=== PATIENT | male | born 1955 | race Caucasian/White ===

== ENCOUNTER 2021-04-18 01:50 | Day surgery (SDC) | payer MEDICARE, OTHER, SELFPAY ==
--- NOTE | 2021-04-17 18:01 | PM.HPGS ---
History of Present Illness History of Present Illness Consent: Risks, benefits, and alternatives have been discussed and questions answered. Patient agrees to proceed with procedure. Chief complaint: rectal bleed, fam hx of colon ca, hx of colon poly Narrative: Celestine Haas is a 65 year old male here for colon cancer screening. His mother had colon cancer. Also, he has some time seen blood in his stools although he is on Xarelto. He has had polyps removed in the past Review of Systems Review of Systems: All systems reviewed & are unremarkable except as noted in HPI and below PMFSH Past Medical History Medical History Arthritis Heart disease Hernia Skin cancer Surgical History Surgical History H/O cardiac radiofrequency ablation Family History Family History Mother Carcinoma of colon Father Lung cancer Social History Social History Smoking packs per day: 1 Smoking cigarettes per day: 20.0 Years smoked: 30 Smoking pack-years: 30.00 Smoking status: Former smoker Tobacco type: cigarettes Alcohol intake: current Alcohol use details: social Substance use: never Substance use type: does not use Living arrangements: with family Spiritual care concerns: No Meds Home Medications and Allergies Home Medications Medication Instructions Recorded Confirmed Type atorvastatin 20 mg tablet 20 mg PO DAILY 04/03/21 04/09/21 History diltiazem HCl 240 mg capsule,24 240 mg PO DAILY 04/03/21 04/18/21 History hr,extended release ezetimibe 10 mg tablet 10 mg PO DAILY 04/03/21 04/09/21 History rivaroxaban 20 mg tablet 20 mg PO DAILY 04/03/21 04/09/21 History Adults Multivitamin 1 cap PO DAILY 04/09/21 04/09/21 History ergocalciferol (vitamin D2) 50,000 unit PO WEEKLY 04/09/21 04/09/21 History magnesium oxide 400 mg PO BID 04/09/21 04/09/21 History omega-3 fatty acids [Fish Oil] 500 mg PO DAILY 04/09/21 04/09/21 History Allergies Allergy/AdvReac Type Severity Reaction Status Date / Time No Known Allergies Allergy Unverified 04/18/21 07:15 Exam Resp: Auscultation: clear to auscultation bilaterally Cardio: Rate: regular rate Rhythm: regular rhythm GI: GI Palp: Yes Soft to palpation and No Tenderness to palpation present (GI) Assessment and Plan Assessment and plan (1) Family history of colon cancer: Code(s): Z80.0 - Family history of malignant neoplasm of digestive organs Status: Acute Assessment and Plan: Colonoscopy with possible biopsy or polypectomy or cautery or injection of substances.
[2021-04-18 07:17] VITALS: BP 139/93; PULSE 86; RESP 16; TEMP 37.1; O2SAT 100
[2021-04-18] MEDS: LACTATED RINGERS 1,000 ML 150 ML IV CONT (07:29)
--- NOTE | 2021-04-18 08:04 | WPDANESEPPF ---
Anes - Initial Pre Proc Eval Procedure: Operation Date: 04/18/21 08:30 Proposed Procedures p Colonoscopy - Mika Ram MD Date/Time: 04/18/21 08:04 Surgeon: Mika Ram MD Pre Op Diagnosis: rectal bleed, fam hx of colon ca, hx of colon poly Patient Data Age: 65 Gender: M Height: 1.78 m Weight: 93.2 kg Last Vital Signs Temp 98.8 F 04/18/21 07:17 Pulse 86 04/18/21 07:17 Resp 16 04/18/21 07:17 BP 139/93 H 04/18/21 07:17 Pulse Ox 100 04/18/21 07:17 Allergies Allergy/AdvReac Type Severity Reaction Status Date / Time No Known Allergies Allergy Unverified 04/18/21 07:15 Home Medications Medication Instructions Recorded Confirmed Type atorvastatin 20 mg tablet 20 mg PO DAILY 04/03/21 04/09/21 History diltiazem HCl 240 mg capsule,24 240 mg PO DAILY 04/03/21 04/18/21 History hr,extended release ezetimibe 10 mg tablet 10 mg PO DAILY 04/03/21 04/09/21 History rivaroxaban 20 mg tablet 20 mg PO DAILY 04/03/21 04/09/21 History Adults Multivitamin 1 cap PO DAILY 04/09/21 04/09/21 History ergocalciferol (vitamin D2) 50,000 unit PO WEEKLY 04/09/21 04/09/21 History magnesium oxide 400 mg PO BID 04/09/21 04/09/21 History omega-3 fatty acids [Fish Oil] 500 mg PO DAILY 04/09/21 04/09/21 History Patient hx anesthesia problems: none Family hx anesthesia problems: none Results Review: All pre-operative results and documents have been reviewed as part of the pre-operative evaluation. [facility] Past Medical History Medical History Arthritis Heart disease Hernia Skin cancer Surgical History Surgical History H/O cardiac radiofrequency ablation Family History Family History Mother Carcinoma of colon Father Lung cancer Social History Social History Smoking packs per day: 1 Smoking cigarettes per day: 20.0 Years smoked: 30 Smoking pack-years: 30.00 Smoking status: Former smoker Tobacco type: cigarettes Alcohol intake: current Alcohol use details: social Substance use: never Substance use type: does not use Living arrangements: with family Spiritual care concerns: No Anes - Eval Final PreProcedure Day of Procedure 04/18/21 08:04 Patient weight: overweight Heart: regular rate and rhythm Lungs: clear to auscultation Airway: Mallampati scale class II Neurological: alert and oriented Last oral intake: >/= 8 hours ASA classification: III Emergent: no Anesthetic plan: proceed Anesthesia type and monitoring: general GIVS and standard monitoring Results Review: All pre-operative results and documents have been reviewed as part of the pre-operative evaluation. Informed Consent: The patient's anesthetic plan and its attendant risks and benefits were discussed with the patient/family/POA. Questions were solicited and answers provided to the satisfaction of the patient/family/POA.
[2021-04-18 08:56] VITALS: BP 101/58; PULSE 57; RESP 17; O2SAT 96
[2021-04-18 09:06] VITALS: BP 129/77; PULSE 63; RESP 21; O2SAT 98
[2021-04-18 09:16] VITALS: BP 131/77; PULSE 59; RESP 21; O2SAT 98
== END 2021-04-18 09:27 | disposition home or self-care (01) ==
PROVIDERS: PCP Internal Medicine; Visit Provider Internal Medicine Gastroenterology
PROC: 0DJD8ZZ Inspection of Lower Intestinal Tract, Via Natural or Artificial Opening Endoscopic (ICD-10-PCS; CPT 45378; principal; 2021-04-18 08:30)
DX: K62.5 Hemorrhage of anus and rectum (principal); K57.30 Diverticulosis of large intestine without perforation or abscess without bleeding; K64.8 Other hemorrhoids; I51.9 Heart disease, unspecified; M19.90 Unspecified osteoarthritis, unspecified site; Z86.010 Personal history of colon polyps; Z80.0 Family history of malignant neoplasm of digestive organs; Z87.891 Personal history of nicotine dependence; Z79.01 Long term (current) use of anticoagulants
CPT/HCPCS: 45378; J2704; J7120

== ENCOUNTER 2024-09-22 13:22 | Outpatient (CLI) | payer MEDICARE, SELFPAY ==
--- NOTE | ~2024-09-22 | CT_ITS ---
CT of the Abdomen and Pelvis: Indication: Microscopic hematuria Technique: 2.5 mm axial scans were obtained through the abdomen and pelvis prior to and following in travenous administration of 130 cc of Omnipaque 350. Dose reduction technique was used on this scan b y utilizing automated exposure control and iterative reconstruction technique. The dose-length produc t (DLP) was 1940.11 mGy-cm. Findings: Scans through the lung bases are unremarkable. The liver, spleen, pancreas, gallbladder, adrenals and left kidney are within normal limits. 2 mm non obstructing right renal stone present. There are atherosclerotic calcifications of the aorta. No lym phadenopathy. No bowel obstruction or bowel wall thickening. There is no evidence to suggest acute appendicitis. Images through the pelvis were performed. There is a 2.7 cm mass arising from the posterior left blad shira wall, highly suspicious for bladder carcinoma. No other pelvic mass seen. No ascites. Impression: 2.7 cm bladder mass at the posterior, left aspect, consistent with bladder carcinoma until proven oth erwise. Cystoscopy recommended for further evaluation. 2 mm nonobstructing right renal stone. Reviewed, dictated and finalized at location M. Impression: 2.7 cm bladder mass at the posterior, left aspect, consistent with bladder carc inoma until proven otherwise. Cystoscopy recommended for further evaluation. 2 mm nonobstructing right renal stone.
--- OUTSIDE RECORDS SUMMARY | 2024-09-22 13:36 | XMS_ITS | Clinical Summary ---
Author Organization [facility] Facility Address [address] [facility] [address] [place] [address] Care Team Providers Care Rn Anesthesiology Name Role Phone Dario Bridges MD Primary Care Provider [phone] [phone] Encounters Date Type Department Care Team Description 08/19/2024 Office Communication [address] [phone] Zander Burton DO Hematuria, not otherwise specified (Primary Dx); Stage 3a chronic kidney disease (HCC) 08/11/2024 Documentation Only [address] [address] Zander Burton, 08/11/2024 Documentation Only [address] [phone] Zander Burton DO 08/10/2024 1:30 PM CDT Office Visit [facility] [address] [place] [address] [address] [place] [address] Zander Burton DO Stage 3a chronic kidney disease (HCC) (Primary Dx); Persistent proteinuria; Nephrolithiasis; Obstructive sleep apnea syndrome; Permanent atrial fibrillation (HCC); Pure hypercholesterolemi a, not otherwise specified 08/10/2024 Office Communication [address] [phone] Zander Burton, 07/30/2024 Documentation Only [facility], [address] [address] Zander Burton, 07/30/2024 Documentation Only [facility], [address] [place] [phone] Zander Burton, 07/29/2024 Documentation Only [facility], [address] [address] Zander Burton, 07/29/2024 Documentation Only [facility], [address] [place] [address] Zander Burton DO from Last 3 Months Social History Tobacco Use Types Packs/Day Years Used Date Smoking Tobacco: Former Alcohol Use Standard Drinks/Week Comments Yes 0 (1 standard drink = 0.6 oz pure alcohol) Alcoholic Drinks/day: Occasional social drink Sex and Gender Information Value Date Recorded Sex Assigned at Not on file Legal Sex Male 2:50 PM EDT Gender Identity Not on file Sexual Orientation Not on file Last Filed Vital Signs Vital Sign Reading Time Taken Comments Blood Pressure 114/52 08/10/2024 1:44 PM CDT Pulse 58 08/10/2024 1:44 PM CDT Temperature 36.1 C (97 F) 05/06/2024 2:21 PM CDT Respiratory Rate 18 08/10/2024 1:44 PM CDT Oxygen Saturation 95% 08/10/2024 1:44 PM CDT Inhaled Oxygen Concentration - - Weight 97.5 kg (215 lb) 08/10/2024 1:44 PM CDT Height 177.8 cm (5' 10) 08/10/2024 1:44 PM CDT Body Mass Index 30.85 08/10/2024 1:44 PM CDT Plan of Treatment Upcoming Encounters Date Type Department Care Team (Late st Contact Info) Description 11/30/2024 1:30 PM CDT Office Visit [facility], [facility] [address] [facility] [address] [place] [phone] Zander Burton DO [facility] [address] [place] [phone] Health Maintenance Due Date Last Done Comments Colorectal Cancer Screening: Annual FOBT 2002 Colorectal Cancer Screening: Colonoscopy 2002 Colorectal Cancer Screening: Sigmoidoscopy 2002 Hepatitis B Vaccine (1 of 3 - Risk 3-dose series) 2013 Influenza Vaccine (#1) 2024 1, 11/08/2019, 12/17/2018, Additional history exists Pneumococcal Vaccine: 50+ Years Completed 2, 07/28/2019 Insurance Medicare [facility] Advance Directives Documents on File Type Date Recorded Patient Panel Assembler Expl anation Advance Care Planning 05/14/2024 10:20 AM Care Teams Rn Anesthesiology Relationship Specialty Start Date End Date Dario Bridges MD [address] [facility], [address] [place] [address] PCP - General Internal Medicine 02/20/24
--- OUTSIDE RECORDS SUMMARY | 2024-09-22 13:36 | XMS_ITS | Encounter Summary ---
Author Organization [employer] , [facility] Address [address] [place] [address] Phone Care Team Providers Care Health And Nutrition Specialist Name Role Phone Dario Bridges MD Primary Care Provider [phone] [phone] Reason for Visit * Reason Comments Med Refill Encounter Details Date Type Department Care Team (Late st Contact Info) Description 02/01/2022 Refill [email or web address], [place] [phone] Zander Burton DO [address] [place] [phone] Social History Tobacco Use Types Packs/Day Years Used Date Smoking Tobacco: Former Alcohol Use Standard Drinks/Week Comments Yes 0 (1 standard drink = 0.6 oz pure alcohol) Alcoholic Drinks/day: Occasional social drink Sex and Gender Information Value Date Recorded Sex Assigned at Not on file Legal Sex Male 2:50 PM EDT Gender Identity Not on file Sexual Orientation Not on file documented as of this encounter Miscellaneous Notes * Telephone Encounter - Margarita Nix CMA - 02/01/2022 12:10 PM SINGE WINDER Pt needs to call pcp for medication documented in this encounter Plan of Treatment Upcoming Encounters Date Type Department Care Team (Late st Contact Info) Description 11/30/2024 1:30 PM CDT Office Visit [facility], [facility] [address] [facility] [place] [address] [place] [phone] Zander Burton, [address] [place] [address] [address] [address] [place] [phone] documented as of this encounter Visit Diagnoses Not on filedocumented in this encounter Care Teams Health And Nutrition Specialist Relationship Specialty Start Date End Date Dario Bridges MD [address] [facility], [address] [place] [address] PCP - General Internal Medicine 02/20/24 documented as of this encounter
--- OUTSIDE RECORDS SUMMARY | 2024-09-22 13:36 | XMS_ITS | Encounter Summary ---
Author Organization [facility] [employer] , [facility] Address [address] [facility] [place] [address] Phone Care Team Providers Care Game Attendant Name Role Phone Dario Bridges MD Primary Care Provider [phone] [phone] Reason for Visit * Reason Comments Med Refill Encounter Details Date Type Department Care Team (Late st Contact Info) Description 01/27/2022 Refill [facility] [place], [facility] [address] [place] [address] 1 [place] [address] Zandre Burton DO [address] [facility] 1 [place] [address] Social History Tobacco Use Types Packs/Day [...] on file documented as of this encounter Plan of Treatment Upcoming Encounters Date Type Department Care Team (Late st Contact Info) Description 11/30/2024 1:30 PM CDT Office Visit [facility], [facility] [address] [facility] 15 [place] [address] Zander Burton DO [address] [facility] 1 [place] [address] documented as of this encounter Visit Diagnoses Not on filedocumented in this encounter Care Teams Game Attendant Relationship Specialty Start Date End Date Dario Bridges MD [address] [facility], [address] [place] [address] PCP - General Internal Medicine 02/20/24 documented as of this encounter
--- OUTSIDE RECORDS SUMMARY | 2024-09-22 13:36 | XMS_ITS | Clinical Summary ---
Author Organization [facility] [email or web address] Address [address] [facility] [place] [address] Care Team Providers Care Thread Reeler Name Role Phone Dario Bridges MD Primary Care Provider Source Comments [facility] [email or web address],non-owned Affiliates and Associated Physician Practices is amultiple site organization consisting of ambulatory clinics and hospital sitesin [place], [place], [place] and [place]. This disclosure is being madepursuant to the Care Everywhere program and may not contain all information available regarding this patient. Last updated 17.[facility] [email or web address] Allergies No known active allergies Medications * Be aware that medications may not be up to date on this document. Alwaysverify current medications with the patient. atorvastatin (LIPITOR) 20 MG tablet Take 1 (one) tablet by mouth every 2 days Active Magnesium 400 MG Take 800 mg by mouth 2 times daily Active rivaroxaban (Xarelto) 20 MG tablet Take 1 (one) tablet by mouth daily with food Active Multiple Vitamins-Minera ls (MULTIVITAMIN ADULTS 50+) TABS Active Spangle-3 Fatty Acids (FISH OIL) 500 MG capsule Take 500 (five hundred) mg by mouth once daily Active dilTIAZem ER 24hr (Tiazac) 240 MG capsule 1 (one) capsule 2 times daily 08/02/2021 Active ascorbic acid (Vitamin C) 250 MG chewable tablet Take by mouth once daily Active Active Problems Problem Noted Date Diagnosed Date NAFLD (nonalcoholic fatty liver disease) 019 Overview (11/15/2022): 06/19/18 [employer] CAP 314, LSM 7.3 kPa 03/07/20 [employer] CAP 281, LSM 6.1 kPa 10/16/21 [employer] CAP 225, LSM 5.1 kPa 11/15/22 [employer] CAP 203, LSM 2.8 kPa Resolved Problems Problem Noted Date Diagnosed Date Resolved Date Elevated liver enzymes 04/24/201812/15 Social History Tobacco Use Types Packs/Day Years Used Date Smoking Tobacco: Former Cigarettes Smokeless Tobacco: Never Tobacco Cessation:Counseling Given: Not Answered Comments:quit 1999 Alcohol Use Standard Drinks/Week Comments Yes 0 (1 standard drink = 0.6 oz pur e alcohol) occasional Sex and Gender Information Value Date Recorded Sex Assigned at Not on file Legal Sex Male 2:37 PM [employer]OR [employer] Gender Identity Not on file Sexual Orientation Not on file Last Filed Vital Signs Vital Sign Reading Time Taken Comments Blood Pressure 128/78 11/13/2023 8:48 AM CDT Pulse 50 11/13/2023 8:48 AM CDT Temperature 36.4 C (97.5 F) 11/15/2022 8:08 AM CDT Respiratory Rate 18 11/15/2022 8:08 AM CDT Oxygen Saturation 98% 11/13/2023 8:48 AM CDT Inhaled Oxygen Concentration - - Weight 91.7 kg (202 lb 3.2 oz) 11/13/2023 8:48 A M CDT Height 177.8 cm (5' 10) 11/13/2023 8:48 AM CDT Body Mass Index 29.01 11/13/2023 8:48 AM CDT Plan of Treatment Upcoming Encounters Date Type Department Care Team (Late st Contact Info) Description 11/11/2024 8:00 AM CDT Procedure visit [facility] [address] [place] [phone] 11/11/2024 8:30 AM CDT Office [place] [facility] [place] [address] [place] [phone] Isa Vyas, [employer] ASSEMBLER-BOARD OF DIRECT[employer] [address] [place] [address] Health Maintenance Due Date Last Done Comments COLOGUARD (AGES 45-75) - COLON CA SCREENING 1953 COLON MONITORING 1953 COLONOSCOPY - COLON CA SCREENING 1953 CT COLONOGRAPHY - COLON CA SCREENING 1953 Colorectal Cancer Screening 1953 FIT - COLON CA SCREENING 1953 FLEX SIG - COLON CA SCREENING 1953 MEDICARE AWV 12 MONTHS 1953 HEPATITIS C SCREENING 07/13/1971 DTAP/TDAP/TD VACCINES (1 - Tdap) 1972 PNEUMOCOCCAL VACCINE 50+ (1 of 1 - PCV) 07/18/2003 ZOSTER VACCINE (1 of 2) 07/18/2003 AAA SCREENING 2018 COVID-19 VACCINE ( - season) 2023 11/23/2021, 06/02/2021, 12/27/2020, Additional history exists DEPRESSION SCREENING 02/25/2024 INFLUENZA VACCINE (#1) 2024 1, 11/08/2019, 12/17/2018, Additional history exists SCREENING FOR DIABETES 11/10/2026 4, 10/04/2022, 10/17/2020, Additional history exists Respiratory Syncytial Virus (RSV) Vaccine Pt: or over 60 yrs (1 - 1-dose 75+ series) 2028 HEPATITIS B VACCINE Aged Out No longe r eligible based on patient's age to complete this topic HIB VACCINE Aged Out No longer eligi ble based on patient's age to complete this topic HPV VACCINE Aged Out No longer eligi ble based on patient's age to complete this topic MENINGOCOCCAL (Group B) VACCINE SHARED DECISION-MAKING Aged Out No longer eligible based on patient's age to complete this topic MENINGOCOCCAL GROUPS A/C/Y/W VACCINE Aged Out No longer eligible based on patient's age to complete this topic Goals Goal Patient Goal Type Associated Problems Recent Progress Patient-Stated? Author Medication Management General On track( 023 8:10 AM CDT) Jin Saunders, RN Note: Expected end date: Interventions: Take all medications as prescribed Let your doctor know right away about any changes in your medications Make sure to request a refill of your medication at least one week prior to your last dose Procedures Procedure Name Priority Date/Time Associated Diagnosis Comments COMPREHENSIVE METABOLIC PANEL 11/11/2023 8:37 AM CDT from Last 3 Months or Most Recently Relevant to Health Maintenance Results * (ABNORMAL) COMPREHENSIVE METABOLIC PANEL (11/11/2023 8:37 AM CDT) Pathologist [facility] Glucose 97 65 - 99 mg/dL [facility] Comment: Fasting reference interval BUN 22 7 - 25 mg/dL [facility] Creatinine 1.30(H) 0.70 - 1.28 mg/dL [facility] eGFR by Cystatin C 59(L) > OR = 60 mL/min/1. 73m2 [facility] BUN/Creatinine Ratio 17 6 - 22 (calc) [facility] Sodium 139 135 - 146 mmol/L [facility] Potassium 4.6 3.5 - 5.3 mmol/L [facility] Chloride 103 98 - 110 mmol/L [facility] CO2 30 20 - 32 mmol/L [facility] Calcium 9.7 8.6 - 10.3 mg/dL [facility] Protein Total 7.0 6.1 - 8.1 g/dL [facility] Albumin 4.4 3.6 - 5.1 g/dL [facility] Globulin Total 2.6 1.9 - 3.7 g/dL (calc) [facility] Albumin/Globulin Ratio 1.7 1.0 - 2.5 (calc) [facility] Bilirubin Total 0.9 0.2 - 1.2 mg/dL [facility] Alkaline Phosphatase 72 35 - 144 U/L [facility] AST 28 10 - 35 U/L [facility] ALT 31 9 - 46 U/L [facility] Comment: Test Performed at: [place] [place] [address] [place] [address] BRUNO GUO MD 11/11/2023 8:3 7 AM CDT 11/11/2023 8:38 AM CDT us Isa Vyas [employer] AS[employer]ER-[employer] DIRECT[employer] LAB - CHEMISTRY ORD ERABLES Final Result [address] [address] from Last 3 Months or Most Recently Relevant to Health Maintenance Insurance MEDICARE MEDICARE Care Teams Thread Reeler Relationship Specialty Start Date End Date Dario Bridges MD [address] [facility] 15 [place] [address] PCP - General 03/16/18
--- OUTSIDE RECORDS SUMMARY | 2024-09-22 13:36 | XMS_ITS | Encounter Summary ---
Author Organization [facility] [employer] , [facility] Address [address] [facility] [place] [address] Phone Care Team Providers Care General Farmer Name Role Phone Dario Bridges MD Primary Care Provider [phone] [phone] Reason for Visit * Reason Comments Med Refill Encounter Details Date Type Department Care Team (Late st Contact Info) Description 07/25/2021 Refill [facility], [facility] [address] [place] [address] 1 [place] [address] Zander Burton DO [address] [facility] 1 [place] [address] Social History Tobacco Use Types [...] Description 11/30/2024 1:30 PM CDT Office Visit [facility], [facility] [address] [facility] 15 [place] [address] Zander Burton DO [address] [facility] 1 [place] [address] documented as of this encounter Visit Diagnoses Not on filedocumented in this encounter Care Teams General Farmer Relationship Specialty Start Date End Date Dario Bridges MD [address] [facility], [address] [place] [address] PCP - General Internal Medicine 02/20/24 documented as of this encounter
--- OUTSIDE RECORDS SUMMARY | 2024-09-22 13:36 | XMS_ITS | Encounter Summary ---
Author Organization [facility] [employer] , [facility] Address [address] [facility] [place] [address] Phone Care Team Providers Care Cisco Administrator Name Role Phone Dario Bridges MD Primary Care Provider [phone] [phone] Reason for Visit * Reason Comments Med Refill Encounter Details Date Type Department Care Team (Late st Contact Info) Description 02/20/2022 Refill [facility], [facility] [address] [place] [address] 1 [place] [address] Zander Burton DO [address] [facility] 1 [place] [address] Social History Tobacco Use Types [...] Description 11/30/2024 1:30 PM CDT Office Visit [facility], [facility] [address] [facility] 15 [place] [address] Zander Burton DO [address] [facility] 1 [place] [address] documented as of this encounter Visit Diagnoses Not on filedocumented in this encounter Care Teams Cisco Administrator Relationship Specialty Start Date End Date Dario Bridges MD [address] [facility], [address] [place] [address] PCP - General Internal Medicine 02/20/24 documented as of this encounter
[2024-09-22 13:51] LABS: Estimated Glomerular Filt Rate > 60
== END 2024-09-22 13:23 | disposition home or self-care (01) ==
PROVIDERS: PCP Internal Medicine; Visit Provider Urology
DX: N32.89 Other specified disorders of bladder (principal); R31.29 Other microscopic hematuria
CPT/HCPCS: 74178; Q9967

== ENCOUNTER 2024-10-08 14:15 | Outpatient (CLI) | payer MEDICARE, SELFPAY ==
--- OUTSIDE RECORDS SUMMARY | 2024-10-08 14:21 | XMS_ITS | Clinical Summary ---
Author Organization [facility] Address [address] [facility] [place] [address] Care Team Providers Care Telephone Operator Chief Name Role Phone Dario Bridges MD Primary Care Provider Source Comments [facility],non-owned Affiliates and Associated Physician Practices is amultiple site organization consisting of ambulatory clinics and hospital sitesin [place], [place], [place] and [place]. This disclosure is being madepursuant to the Care Everywhere program and may not contain all information available regarding this patient. 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 Gender Identity Not on file Sexual Orientation [...] Procedure visit [facility] [address] [place] [phone] 11/11/2024 8:30 AM CDT Office [place] [facility] [place] [address] [place] [phone] Isa Vyas, INFORMATION SECURITY OFFICER-STANDARD MACHINE STITCHER [address] [place] [address] Health Maintenance Due Date Last Done Comments [...] DEPRESSION SCREENING 02/25/2024 INFLUENZA VACCINE (#1) 2024 4, 11/20/2020, 11/08/2019, Additional history exists SCREENING FOR DIABETES 11/10/2026 [...] COMPREHENSIVE METABOLIC PANEL (11/11/2023 8:37 AM CDT) [facility] Glucose 97 65 - 99 mg/dL [facility] [...] 46 U/L [facility] Comment: Test Performed at: [facility] [address] [place] [address] BRUNO GUO MD 11/11/2023 8:3 7 AM CDT 11/11/2023 8:38 AM CDT us Isa Vyas INFORMATION SECURITY OFFICER-STANDARD MACHINE STITCHER LAB - CHEMISTRY ORD ERABLES Final Result [address] [address] from Last 3 Months or Most Recently Relevant to Health Maintenance Insurance MEDICARE MEDICARE Care Teams Telephone Operator Chief Relationship Specialty Start Date End Date Dario Bridges MD [address] [facility] [address] [place] [phone] PCP - General 03/16/18
--- OUTSIDE RECORDS SUMMARY | 2024-10-08 14:21 | XMS_ITS | Encounter Summary ---
Author Organization [facility] , [facility] Address [address] [place] [address] Phone Care Team Providers Care Geography Instructor Name Role Phone Dario Bridges MD Primary Care Provider +1 [phone] Reason for Visit * Reason Comments Med Refill Encounter Details Date Type Department Care Team (Late st Contact Info) Description 02/01/2022 Refill [place] [facility], [place] [phone] Zander Burton DO [address] [place] [address] Social History Tobacco Use Types Packs/Day [...] Margarita Nix CMA - 02/01/2022 12:10 PM NEEDLE PUNCH MACHINE OPERATOR Pt needs to call pcp for medication documented in this encounter Plan of Treatment Upcoming Encounters Date Type Department Care Team (Late st Contact Info) Description 11/30/2024 1:30 PM CDT Office Visit [facility], [facility] [address] [facility] [address] [place] [address] Zander Burton, [address] [place] [address] [address] [place] [phone] documented as of this encounter Visit Diagnoses Not on filedocumented in this encounter Care Teams Geography Instructor Relationship Specialty Start Date End Date Dario Bridges MD [address] [facility], [address] [place] [address] PCP - General Internal Medicine 02/20/24 documented as of this encounter
--- OUTSIDE RECORDS SUMMARY | 2024-10-08 14:21 | XMS_ITS | Encounter Summary ---
Author Organization [facility] [employer] [facility] Address [address] [facility] [place] [address] Phone Care Team Providers Care Teacher Name Role Phone Dario Bridges MD Primary Care Provider +1 [phone] Encounter Details Date Type Department Care Team (Late st Contact Info) Description 10/06/2024 Documentation Only [place] [employer] [place] [address] [place] [address] Zander Burton DO [address] [facility] 1 [place] [address] Social History Tobacco Use Types [...] Description 11/30/2024 1:30 PM CDT Office Visit [place] [employer] [facility] [address] [facility] [address] [place] [address] Zander Burton DO [address] [facility] 1 [place] [address] documented as of this encounter Visit Diagnoses Not on filedocumented in this encounter Care Teams Teacher Relationship Specialty [place] [address] [place] [address], [address] [place] [address] PCP - General Internal Medicine 02/20/24 documented as of this encounter
--- OUTSIDE RECORDS SUMMARY | 2024-10-08 14:21 | XMS_ITS | Clinical Summary ---
Author Organization [facility] Address [address] [address] Care Team Providers Care Parts Consultant Name Role Phone Dario Bridges MD Primary Care Provider +1 [phone] Encounters Date Type Department Care Team Description 10/06/2024 Documentation Only [address] [address] Zander Burton DO 08/19/2024 Office Communication [address] [address] Zander Burton DO Hematuria, not otherwise specified (Primary Dx); Stage 3a chronic kidney disease (HCC) 08/11/2024 Documentation Only [address] [address] Zander Burton DO 08/11/2024 Documentation Only [address] [address] Zander Burton DO 08/10/2024 1:30 PM CDT Office Visit [place] [facility] [address] [facility] 93 [place] [address] Zander Burton DO Stage 3a chronic kidney disease (HCC) (Primary Dx); Persistent proteinuria; Nephrolithiasis; Obstructive sleep apnea syndrome; Permanent atrial fibrillation (HCC); Pure hypercholesterolemi a, not otherwise specified 08/10/2024 Office Communication [place] [facility], [address] [address] Zander Burton, 07/30/2024 Documentation Only [facility], [address] [place] [address] Zander Burton, 07/30/2024 Documentation Only [facility], [address] [address] Zander Burton, 07/29/2024 Documentation Only [facility], [address] [phone] Zander Burton, 07/29/2024 Documentation Only [facility], [address] [phone] Zander Burton, DO from Last 3 Months Social History [...] Description 11/30/2024 1:30 PM CDT Office Visit [facility], [facility] 20[address] [facility] [address] [place] [address] Zander Burton DO [address] [facility] 1 [place] [phone] Health Maintenance Due Date Last Done Comments Colorectal Cancer Screening: Annual FOBT 2002 Colorectal Cancer Screening: Colonoscopy 2002 Colorectal Cancer Screening: Sigmoidoscopy 2002 Hepatitis B Vaccine (1 of 3 - Risk 3-dose series) 2013 Influenza Vaccine (#1) 2024 4, 10/25/2022, 11/20/2020, Additional history exists Pneumococcal Vaccine: 50+ Years Completed 2, 07/28/2019 Insurance Medicare [facility] Advance Directives Documents on File Type Date Recorded Patient Bathhouse Keeper Expl anation Advance Care Planning 05/14/2024 10:20 AM Care Teams Parts Consultant Relationship Specialty Start Date End Date Dario Bridges MD [address]44 [facility], [address] [place] [address] PCP - General Internal Medicine 02/20/24
--- OUTSIDE RECORDS SUMMARY | 2024-10-08 14:21 | XMS_ITS | Encounter Summary ---
Author Organization [facility] [employer] , [facility] Address [address] [facility] [place] [address] Phone Care Team Providers Care Cementer Name Role Phone Dario Bridges MD Primary Care Provider [phone] [phone] Reason for Visit * Reason Comments Med Refill Encounter Details Date Type Department Care Team (Late st Contact Info) Description 07/25/2021 Refill [place] [employer] [facility], [facility] [address] [place] [address] 1 [place] [address] Zander Burton DO 12[address] [facility] 1 [place] [address] Social History Tobacco Use Types [...] Description 11/30/2024 1:30 PM CDT Office Visit [facility] [employer] [facility], [facility] [address] [facility] [address] 15 [place] [address] Zander Burton DO 12[address] [facility] 1 [place] [address] documented as of this encounter Visit Diagnoses Not on filedocumented in this encounter Care Teams Cementer Relationship Specialty Start Date End Date Dario Bridges MD 6 [facility], [address] [place] [address] PCP - General Internal Medicine 02/20/24 documented as of this encounter
--- OUTSIDE RECORDS SUMMARY | 2024-10-08 14:21 | XMS_ITS | Encounter Summary ---
Author Organization [facility] [employer] , [facility] Address [address] [facility] [place] [address] Phone Care Team Providers Care Gate Tender Name Role Phone Dario Bridges MD Primary Care Provider [phone] [phone] Reason for Visit * Reason Comments Med Refill Encounter Details Date Type Department Care Team (Late st Contact Info) Description 02/20/2022 Refill [place] [facility] [place], [facility] [address] [place] [address] 1 [place] [address] Zander Burton DO 12[address] [facility] 1 [place] [address] Social History Tobacco Use Types [...] Description 11/30/2024 1:30 PM CDT Office Visit [place] [facility], [facility] [address] [facility] 15 [place] [address] Zander Burton DO 12[address] [facility] 1 [place] [address] documented as of this encounter Visit Diagnoses Not on filedocumented in this encounter Care Teams Gate Tender Relationship Specialty Start Date End Date Dario Bridges MD 6 [facility], [address] [place] [address] PCP - General Internal Medicine 02/20/24 documented as of this encounter
--- OUTSIDE RECORDS SUMMARY | 2024-10-08 14:21 | XMS_ITS | Encounter Summary ---
Author Organization [facility] [employer] , [facility] Address [address] [facility] [place] [address] Phone Care Team Providers Care Web Content Specialist Name Role Phone Dario Bridges MD Primary Care Provider [phone] -[phone] Reason for Visit * Reason Comments Med Refill Encounter Details Date Type Department Care Team (Late st Contact Info) Description 01/27/2022 Refill [place] [employer] [facility] [place], [facility] [address] [place] [address] 1 [place] [address] Zander Burton DO 12[address] [facility] 1 [place] [address] Social History Tobacco Use Types [...] 11/30/2024 1:30 PM CDT Office Visit [place] [facility], [facility] [address] [facility] [address] [place] [address] Zander Burton DO 12[address] [facility] 1 [place] [address] documented as of this encounter Visit Diagnoses Not on filedocumented in this encounter Care Teams Web Content Specialist Relationship Specialty Start Date End Date Dario Bridges MD 6 [facility], [address] [place] [address] PCP - General Internal Medicine 02/20/24 documented as of this encounter
--- NOTE | 2024-10-08 14:31 | ECG_ITS ---
Test Date: 2024-10-08 14:48:21 Measurements Intervals [place] Rate: 54 P: 75 NM: 168 QRS: 39 QRSD: 96 T: 46 QT: 437 QTc: 415 Interpretive Statements SINUS BRADYCARDIA BORDERLINE ST-T WAVE ABNORMALITY- ANTERIOR LEADS BORDERLINE ECG No previous ECG available for comparison Electronically Signed On 10-08-2024 14:51:23 CDT by Miky Flores D.O.
[2024-10-08 15:02] LABS: Hematocrit 40.2 % (42.0-52.0); Hemoglobin 13.8 g/dL (14.0-18.0); Immature Granulocyte Percent A 0.2 % (0-0.5); Lymphocytes Absolute Auto 2.32 K/mm3 (0.9-3.2); Mean Corpuscular HGB Conc 34.3 g/dl (32-36); Mean Corpuscular Hemoglobin 31.4 pg (26-34); Mean Corpuscular Volume 91.4 fl (80-100); Nucleated Red Blood Cells Absolute Auto 0.000 K/mm3 (0.0-0.012); Nucleated Red Blood Cells Perc 0.0 % (0.0-0.2); Platelet Count Result 192 k/mm3 (150-375); Red Blood Count 4.40 M/mm3 (4.6-6.20); White Blood Count 6.4 K/mm3 (4.5-10.0)
[2024-10-08 15:20] LABS: Anion Gap 11 mmol/L (4-12); Blood Urea Nitrogen 20 mg/dL (9-20); Calcium 9.8 mg/dL (8.4-10.2); Carbon Dioxide 26 mmol/L (22-30); Chloride 103 mmol/L (98-107); Estimated Glomerular Filt Rate > 60; Glucose 104 mg/dL (65-110); Potassium 4.2 mmol/L (3.4-5.0); Sodium 140 mmol/L (137-145)
[2024-10-08 15:25] LABS: INR 1.0; Prothrombin Time 12.9 Seconds (11.1-14.7)
[2024-10-08 15:26] LABS: Partial Thromboplastin Time 26.3 Seconds (22.3-36.8)
== END 2024-10-08 14:16 | disposition home or self-care (01) ==
PROVIDERS: PCP Internal Medicine; Visit Provider Urology
DX: Z01.818 Encounter for other preprocedural examination (principal); R31.29 Other microscopic hematuria; I48.91 Unspecified atrial fibrillation
CPT/HCPCS: 36415; 80048; 85025; 85610; 85730; 87086; 93005

== ENCOUNTER 2024-10-11 00:30 | Day surgery (SDC) | payer MEDICARE, SELFPAY ==
--- NOTE | 2024-10-08 13:46 | PC.NURSE ---
Report to the Outpatient Waiting Room, entrance under the green pavilion located off [facility], at time __10:00AM___ on date ___10/11/24__. Planned Procedure Time: ___12:00PM___.? Time changes happen often and if your time is changed the preop area will call you the afternoon before. - You and your visitor will be asked to self-screen and do not enter if you have any COVID symptoms. Please call surgeon if you need to reschedule. - A mask is optional within the hospital at this time. Patients may have clear liquids (water, carbonated beverages, clear teas, apple juice) until 3 hours prior to surgery (9:00AM) with a maximum of 20 ounces. - No food from midnight until time of surgery and no smoking, or chewing tobacco (or any form of nicotine). No chewing gum, candy or mints. Take only the following medications with a SIP of water on the morning of surgery: DILTIAZEM, DOFETILIDE DO NOT STOP ANY OF YOUR OTHER PRESCRIPTION MEDICATIONS PRIOR TO SURGERY EXCEPT THE FOLLOWING Hold all vitamins and supplements for 3 days per anesthesiologist.-STARTING NOW Medications to discontinue per physician __HOLD XERALTO 4 DAYS PRE-OP PER DR HODGES/PER PATIENT Date to take last dose 10/06/24 Please no make-up, nail mauritian, hairspray, perfume, deodorant, or body powder the day of surgery.? No jewelry (including any body piercings) or valuables the day of surgery, leave them at home.? Please take a shower or bath the night before, or the morning of, surgery with an antibacterial soap.? Wear comfortable, loose fitting clothing.? - Jewelry must be removed prior to entering the operating room.? Rings and piercings that are not removed may be cut off. - The hospital will not accept responsibility for valuables.? - Please leave all valuables, including medications, at home the day of surgery. If you are going home after surgery, a licensed laborer driver must drive you home.? - NO public transportation without another adult if you receive anesthesia. - We recommend that an adult stay with you for 24 hours following discharge. - We also recommend that you do not drive, make important decision, drink alcoholic beverages, or take any drugs that were not prescribed by your health care provider for at least 24 hours after your discharge time. Follow any additional instructions given to you from your surgeon. Telephone instructions given to ____PATIENT and asked if any additional questions and then verbalized understanding. Patient advised to call surgeon office or pre surgery nurse liaison [phone] if any additional questions.
[2024-10-11] VITALS (9 sets, daily range): BP systolic 119–147; BP diastolic 71–92; PULSE 50–60; RESP 14–18; TEMP 36.2–36.3; O2SAT 99–100
--- OUTSIDE RECORDS SUMMARY | 2024-10-11 00:35 | XMS_ITS | Encounter Summary ---
Author Organization [facility] [employer] , [facility] Address [address] [facility] [place] [address] Phone Care Team Providers Care Powder Worker Tnt Name Role Phone Dario Bridges MD Primary Care Provider +1 -[phone] Reason for Visit * Reason Comments Med Refill Encounter Details Date Type Department Care Team (Late st Contact Info) Description 01/27/2022 Refill [place] [facility], [facility] [address] [place] [address] 1 [place] [address] Zander Burton DO 1265 [facility] 1 [place] [address] Social History Tobacco Use Types [...] Description 11/30/2024 1:30 PM CDT Office Visit [place] [facility], [facility] [address] [facility] 15 [place] [address] Zander Burton DO 1265 [facility] 1 [place] [address] documented as of this encounter Visit Diagnoses Not on filedocumented in this encounter Care Teams Powder Worker Tnt Relationship Specialty Start Date End Date Dario Bridges MD 7 [facility], [address] [place] [address] PCP - General Internal Medicine 02/20/24 documented as of this encounter
--- OUTSIDE RECORDS SUMMARY | 2024-10-11 00:35 | XMS_ITS | Encounter Summary ---
Author Organization [facility] [email or web address] , [facility] Address [address] [facility] [place] [address] Phone Care Team Providers Care Polisher Balance Screwhead Name Role Phone Dario Bridges MD Primary Care Provider +1 -[phone] Reason for Visit * Reason Comments Med Refill Encounter Details Date Type Department Care Team (Late st Contact Info) Description 02/20/2022 Refill [place] [facility], [facility] [address] [place] [address] 1 [place] [address] Zander Burton DO 1265 [facility] 1 [place] [address] Social History Tobacco Use Types [...] Description 11/30/2024 1:30 PM CDT Office Visit [facility] [facility], [facility] [address] [facility] 15 [place] [address] Zander Burton DO 1265 [facility] 1 [place] [address] documented as of this encounter Visit Diagnoses Not on filedocumented in this encounter Care Teams Polisher Balance Screwhead Relationship Specialty Start Date End Date Dario Bridges MD 7 [facility], [address] [place] [address] PCP - General Internal Medicine 02/20/24 documented as of this encounter
--- OUTSIDE RECORDS SUMMARY | 2024-10-11 00:35 | XMS_ITS | Clinical Summary ---
Author Organization [facility] [employer] Address [address] [place] [address] Care Team Providers Care Marketing Segment Manager Name Role Phone Dario Bridges MD Primary Care Provider Source Comments [facility] [employer],non-owned Affiliates and Associated Physician Practices is amultiple site organization consisting of ambulatory clinics and hospital sitesin [place], [place], [place] and [place]. This disclosure is being madepursuant to the Care Everywhere program and may not contain all information available regarding this patient. 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 Gender Identity Not on file Sexual Orientation [...] Procedure visit [facility] [address] [place] [address] 11/11/2024 8:30 AM CDT Office [place] [facility] [place] [address] [place] [address] Isa Vyas, CATALOGING ASSISTANT-DEDICATED REGIONAL DRIVER [address] [place] [address] Health Maintenance Due Date Last Done Comments [...] COMPREHENSIVE METABOLIC PANEL (11/11/2023 8:37 AM CDT) [facility] Glucose 97 65 - 99 mg/dL [facility] [...] 46 U/L [facility] Comment: Test Performed at: [facility] [address] [place] [address] BRUNO GUO MD 11/11/2023 8:3 7 AM CDT 11/11/2023 8:38 AM CDT us Isa Vyas CATALOGING ASSISTANT-DEDICATED REGIONAL DRIVER LAB - CHEMISTRY ORD ERABLES Final Result [address] [address] from Last 3 Months or Most Recently Relevant to Health Maintenance Insurance MEDICARE MEDICARE Care Teams Marketing Segment Manager Relationship Specialty Start Date End Date Dario Bridges MD 2043 [facility] 15 [place] [phone] PCP - General 03/16/18
--- OUTSIDE RECORDS SUMMARY | 2024-10-11 00:35 | XMS_ITS | Encounter Summary ---
Author Organization [facility] [employer] , [facility] Address [address] [facility] [place] [address] Phone Care Team Providers Care Cell Biology Scientist Name Role Phone Dario Bridges MD Primary Care Provider +1 -[phone] Reason for Visit * Reason Comments Med Refill Encounter Details Date Type Department Care Team (Late st Contact Info) Description 07/25/2021 Refill [place] [facility], [facility] [address] [place] [address] 1 [place] [address] Zander Burton DO 1265 [facility] 1 [place] [address] Social History Tobacco Use Types [...] Description 11/30/2024 1:30 PM CDT Office Visit [place] [facility], [facility] 2043 [facility] 15 [place] [address] Zander Burton DO 12[address] [facility] 1 [place] [address] documented as of this encounter Visit Diagnoses Not on filedocumented in this encounter Care Teams Cell Biology Scientist Relationship Specialty Start Date End Date Dario Bridges MD 2 [facility], [address] [place] [address] PCP - General Internal Medicine 02/20/24 documented as of this encounter
--- OUTSIDE RECORDS SUMMARY | 2024-10-11 00:35 | XMS_ITS | Encounter Summary ---
Author Organization [employer] , [facility] Address [address] [place] [address] Phone Care Team Providers Care Tubular Stock Glass Bulb Machine Former Name Role Phone Dario Bridges MD Primary Care Provider +1 -[phone] Reason for Visit * Reason Comments Med Refill Encounter Details Date Type Department Care Team (Late st Contact Info) Description 02/01/2022 Refill [place] [facility], [place] [phone] Zander Burton DO [address] [place] [address] Social History Tobacco Use Types Packs/Day [...] Margarita Nix CMA - 02/01/2022 12:10 PM UTILIZATION SUPERVISOR Pt needs to call pcp for medication documented in this encounter Plan of Treatment Upcoming Encounters Date Type Department Care Team (Late st Contact Info) Description 11/30/2024 1:30 PM CDT Office Visit [facility], [facility] [address] [facility] [address] [place] [address] Zander Burton, [address] [place] [address] [address] [place] [phone] documented as of this encounter Visit Diagnoses Not on filedocumented in this encounter Care Teams Tubular Stock Glass Bulb Machine Former Relationship Specialty Start Date End Date Dario Bridges MD 2043 [facility], [address] [place] [address] PCP - General Internal Medicine 02/20/24 documented as of this encounter
--- OUTSIDE RECORDS SUMMARY | 2024-10-11 00:35 | XMS_ITS | Clinical Summary ---
Author Organization [facility] Facility Address [address] [address] Care Team Providers Care Street Light Inspector Name Role Phone Dario Bridges MD Primary Care Provider [phone] Encounters Date Type Department Care Team Description 10/06/2024 Documentation Only [address] [phone] Zander Burton DO 08/19/2024 Office Communication [address] [address] Zander Burton DO Hematuria, not otherwise specified (Primary Dx); Stage 3a chronic kidney disease (HCC) 08/11/2024 Documentation Only [address] [address] Zander Burton DO 08/11/2024 Documentation Only [address] [phone] Zander Burton DO 08/10/2024 1:30 PM CDT Office Visit [facility] [address] [facility] [address] [place] [address] Zander Burton DO Stage 3a chronic kidney disease (HCC) (Primary Dx); Persistent proteinuria; Nephrolithiasis; Obstructive sleep apnea syndrome; Permanent atrial fibrillation (HCC); Pure hypercholesterolemi a, not otherwise specified 08/10/2024 Office Communication [facility], [address] [address] Zander Burton, 07/30/2024 Documentation Only [facility], [address] [place] [address] Zander Burton, 07/30/2024 Documentation Only [facility], [address] [address] Zander Burton, 07/29/2024 Documentation Only [facility], [address] [phone] Zander Burton, 07/29/2024 Documentation Only [facility], [address] [id number] Zander Burton, DO from Last 3 Months [...] Description 11/30/2024 1:30 PM CDT Office Visit [facility], [facility] [address] [facility] [address] [place] [address] Zander Burton DO [address] [facility] [address] [phone] Health Maintenance Due Date Last Done Comments Colorectal Cancer Screening: Annual FOBT 2002 Colorectal Cancer Screening: Colonoscopy 2002 Colorectal Cancer Screening: Sigmoidoscopy 2002 Hepatitis B Vaccine (1 of 3 - Risk 3-dose series) 2013 Influenza Vaccine (#1) 2024 4, 10/25/2022, 11/20/2020, Additional history exists Pneumococcal Vaccine: 50+ Years Completed 2, 07/28/2019 Insurance Medicare [facility] Advance Directives Documents on File Type Date Recorded Patient Bolter Helper Expl anation Advance Care Planning 05/14/2024 10:[address] Light Inspector Relationship Specialty Start Date End Date Dario Bridges MD [address] [facility], [address] [place] [address] PCP - General Internal Medicine 02/20/24
--- NOTE | 2024-10-11 10:53 | WPDANESEPPF ---
Anes - Initial Pre Proc Eval Procedure: Operation Date: 10/11/24 12:00 Proposed Procedures p Trans Urethral Resection Bladder Tumor - Dilip Gorman MD Date/Time: 10/11/24 10:53 Surgeon: iDlip Gorman MD Pre Op Diagnosis: Microscopic Hematuria Patient Data Age: 69 Gender: M Height: 1.78 m Weight: 95 kg Allergies Allergy/AdvReac Type Severity Reaction Status Date / Time No Known Allergies Allergy Unverified 10/08/24 13:08 Home Medications ?Medication ?Instructions ?Recorded ?Confirmed ?Type atorvastatin 20 mg tablet 20 mg PO DAILY 04/03/21 10/08/24 History rivaroxaban 20 mg tablet (Xarelto) 20 mg PO DAILY 04/03/21 10/08/24 History Adults Multivitamin 1 cap PO DAILY 04/09/21 10/08/24 History magnesium oxide 400 mg (241.3 mg 400 mg PO BID 04/09/21 10/08/24 History magnesium) tablet ascorbic acid (vitamin C) 500 mg 500 mg PO DAILY 10/08/24 10/08/24 History capsule diltiazem HCl 300 mg capsule,24 300 mg PO QAM 10/08/24 10/08/24 History hr,extended release (Tiadylt ER) dofetilide 500 mcg capsule 500 mcg PO BID 10/08/24 10/08/24 History ferrous sulfate 325 mg (65 mg 325 mg PO DAILY 10/08/24 10/08/24 History iron) tablet multivitamin (Daily Multi-Vitamin 1 tablet PO DAILY 10/08/24 10/08/24 History tablet) Patient hx anesthesia problems: none Family hx anesthesia problems: none Results Review: All pre-operative results and documents have been reviewed as part of the pre-operative evaluation. [facility] Past Medical History Medical History (Updated 10/11/24 @ 08:31 by León Garcia DO) GERD (gastroesophageal reflux disease) SAMINA (obstructive sleep apnea) Hyperlipidemia Hypertension Atrial fibrillation Hernia Heart disease Skin cancer Arthritis Surgical History Surgical History H/O cardiac radiofrequency ablation Family History Family History Mother Carcinoma of colon Father Lung cancer Social History Social History Smoking packs per day: 1 Smoking cigarettes per day: 20.0 Years smoked: 30 Smoking pack-years: 30.00 Smoking status: Former smoker Tobacco type: cigarettes Smoking end date: 02/24/99 Alcohol intake: current Drinks per week: 3 Alcohol use details: social Substance use: never Substance use type: does not use Living arrangements: with family Additional living arrangements comments: Spiritual care concerns: No Anes - Eval Final PreProcedure Day of Procedure 10/11/24 10:53 Patient weight: obese Heart: regular rate and rhythm Lungs: clear to auscultation Airway: Mallampati scale class II Neurological: alert and oriented Last oral intake: >/= 8 hours ASA classification: III Emergent: no Anesthetic plan: proceed Anesthesia type and monitoring: general LMA and standard monitoring Results Review: All pre-operative results and documents have been reviewed as part of the pre-operative evaluation. Informed Consent: The patient's anesthetic plan and its attendant risks and benefits were discussed with the patient/family/POA. Questions were solicited and answers provided to the satisfaction of the patient/family/POA.
[2024-10-11] MEDS: LACTATED RINGERS 1,000 ML 30 ML IV CONT ×2 (11:00→12:56)
--- NOTE | 2024-10-11 11:45 | WPDHPUPDATE1 ---
History and Physical Update Update Date/Time: 10/11/24 11:45 History and Physical has been reviewed, including an updated exam of the patient. There are NO changes in the patient's condition. Risks, benefits, and alternatives have been discussed and questions answered. Patient agrees to proceed with procedure.
[2024-10-11] MEDS: ceFAZolin 2 GM in SODIUM CHLORIDE 0.9% IV 50 ML 100 ML IVPB (11:52)
[2024-10-11] MEDS: LIDOCAINE 2% GEL UROJET 10 ML PKG MUCOUS MEM (12:14)
--- NOTE | 2024-10-11 12:29 | S_PTH ---
PATIENT: Celestine Haas LOC: [facility] U#:[id number] AGE/SX: 69/M ROOM: RE10/11/[address]: Dilip Gorman, : 1955 BED: DIS: 10/11/2024 SPEC #: [id number] RECD: 10/11/24 13:37 STATUS: BRITTNEY REShabana #: [id number] ANA: 10/11/24 12:[address]: Sherif,Dilip Castañeda DEPT: [facility] Surgical RECD BY: Jaylan Dawson ENTERED: 10/11/24 13:38 SP TYPE: Surgical OTHR DR: Dario BridgesMD Tissues: A - Bladder TURBT B - Bladder TURBT Procedures: Hematoxylin and Eosin Stain Gross and Microscopic Level 5
--- NOTE | 2024-10-11 12:54 | W.PM.PROC2 ---
Procedure Note - Detailed Date of Procedure 10/11/24 Pre-op Diagnosis Bladder tumor greater than 5 cm Post-op Diagnosis Same Procedure Performed Cystoscopy with transurethral resection of bladder tumor Surgeon Dilip Gorman MD Anesthesia General Description of Procedure Patient was taken to the operative suite correctly identified. Once anesthesia was obtained was placed in the dorsal lithotomy position and prepped draped usual sterile fashion. Twenty-four Croatian scope was inserted the bladder. Prostate had some mild lateral lobe hypertrophy. The bladder itself as the area on the left floor just proximal and lateral to the left ureteral orifice. The area encompasses about 5 cm. We went ahead and resected the tumor. We were able to spare the left ureteral orifice at this time. The base was sent as a separate specimen. Hemostasis was achieved with a ball electrode. There appeared to be good hemostasis at termination procedure. Given that extensive area of resection we decided to place a Delcid. 2% viscous lidocaine was inserted into the urethra and an [address] was placed with 10 cc in the balloon. This was connected to continuous bladder irrigation. Patient was taken recovery stable condition. If his urine clears a be discharged home with a Delcid and have it removed on or Friday of this week. This completes dictation. Please send a copy of op note to my office Estimated Blood Loss 10 Drains Yes Packing No Pathology Yes Complications No immediate complications Condition Stable Disposition PACU
== END 2024-10-11 15:18 | disposition home or self-care (01) ==
PROVIDERS: PCP Internal Medicine; Visit Provider Urology
PROC: 0TBB8ZZ Excision of Bladder, Via Natural or Artificial Opening Endoscopic (ICD-10-PCS; CPT 52240; principal; 2024-10-11 12:00)
DX: C67.0 Malignant neoplasm of trigone of bladder (principal); N40.0 Benign prostatic hyperplasia without lower urinary tract symptoms; E78.5 Hyperlipidemia, unspecified; I48.91 Unspecified atrial fibrillation; I11.9 Hypertensive heart disease without heart failure; K21.9 Gastro-esophageal reflux disease without esophagitis; G47.33 Obstructive sleep apnea (adult) (pediatric); M19.90 Unspecified osteoarthritis, unspecified site; E66.9 Obesity, unspecified; Z68.29 Body mass index [BMI] 29.0-29.9, adult; Z79.01 Long term (current) use of anticoagulants; Z87.891 Personal history of nicotine dependence; Z85.828 Personal history of other malignant neoplasm of skin; Z86.79 Personal history of other diseases of the circulatory system; Z80.0 Family history of malignant neoplasm of digestive organs; Z80.1 Family history of malignant neoplasm of trachea, bronchus and lung
CPT/HCPCS: 52240; 88307; J0690; J1100; J2405; J2704; J7120